=== PATIENT | female | born 1970 | race Caucasian/White ===

== ENCOUNTER 2018-01-01 11:13 | Emergency (ER) | payer MEDICAID ==
[2018-01-01] MEDS: TETRACAINE 0.5% 4 ML OPH LEFT EYE (11:44)
[2018-01-01] MEDS: FLUORESCEIN STRIP LEFT EYE (11:44)
[2018-01-01] MEDS: IBUPROFEN 800 MG TAB PO (11:50)
== END 2018-01-01 14:38 | disposition home or self-care (01) ==
LOC: FTE 11:13
DX: B02.9 Zoster without complications (principal); R59.0 Localized enlarged lymph nodes; I10 Essential (primary) hypertension; E66.9 Obesity, unspecified; Z68.27 Body mass index [BMI] 27.0-27.9, adult
CPT/HCPCS: 76536; 99284-25

== ENCOUNTER 2018-07-02 08:55 | Emergency (ER) | payer MEDICAID ==
[2018-07-02 09:39] LABS: ADD MAN DIFF? NO
[2018-07-02 09:40] LABS: WHITE BLOOD COUNT 4.1 10^3/ul (4.8-10.8)
[2018-07-02 09:40] LABS: BASOPHILS % 0.5 % (0.0-2.0); EOSINOPHILS % 2.7 % (0.0-7.0); HEMATOCRIT 43.2 % (37.0-47.0); HEMOGLOBIN 13.7 g/dl (12.0-16.0); LYMPHOCYTES % 34.3 % (15.0-51.0); MEAN CORPUSCULAR HEMOGLOBIN 29.1 pg (29.0-33.0); MEAN CORPUSCULAR HGB CONC 31.7 g/dl (32.0-37.0); MEAN CORPUSCULAR VOLUME 91.7 fl (82.0-101.0); MEAN PLATELET VOLUME 9.1 fl (7.4-10.4); MONOCYTES % 9.4 % (0.0-11.0); NEUTROPHIL # 2.2 10^3/ul (1.6-7.5); NEUTROPHILS % 52.9 % (39.0-77.0); PLATELET COUNT 175 10^3/UL (140-415); RED BLOOD COUNT 4.71 10^6/ul (4.20-5.40); RED CELL DISTRIBUTION WIDTH 12.7 % (11.5-14.5)
[2018-07-02 09:41] LABS: EOSINOPHILS # 0.1 10^3/ul (0.0-0.5); LYMPHOCYTES # 1.4 10^3/ul (0.8-2.9); MONOCYTE # 0.4 10^3/ul (0.3-0.9)
[2018-07-02] MEDS: ONDANSETRON 4 MG INJ IV ×2 (09:42→11:35)
[2018-07-02] MEDS: morphine 2 MG INJ IV (09:42)
[2018-07-02] MEDS: SOD CHLORIDE 0.9% 1,000 ML IV (09:43)
[2018-07-02 09:57] LABS: PROTIME 12.2 Sec (11.9-14.9)
[2018-07-02 09:58] LABS: PARTIAL THROMBOPLASTIN TIME 29.2 Sec (23.0-35.0)
[2018-07-02 10:00] LABS: ADD UMIC NO; ALANINE AMINOTRANSFERASE 31 IU/L (13-69); ALBUMIN 4.6 g/dl (3.3-4.9); ALKALINE PHOSPHATASE 106 IU/L (42-121); AMYLASE 40 U/L (11-123); ANION GAP 9 (5-13); ASPARTATE AMINO TRANSFERASE 31 IU/L (15-46); BILIRUBIN,INDIRECT 0.6 mg/dl (0-1.1); BILIRUBIN,TOTAL 0.6 mg/dl (0.2-1.3); BLOOD UREA NITROGEN 16 mg/dl (7-20); CALCIUM 9.7 mg/dl (8.4-10.2); CARBON DIOXIDE 26 mmol/L (21-31); CHLORIDE 106 mmol/L (97-110); CREATININE 0.53 mg/dl (0.44-1.00); Estimated GFR > 60 mL/min (>60); GLUCOSE 108 mg/dl (70-220); LIPASE 142 U/L (23-300); POTASSIUM 4.8 mmol/L (3.5-5.1); SODIUM 141 mmol/L (135-144); TOTAL PROTEIN 7.3 g/dl (6.1-8.1); UR ASCORBIC ACID NEGATIVE (NEGATIVE); UR BILIRUBIN (Dip) NEGATIVE (NEGATIVE); UR BLOOD (Dip) NEGATIVE (NEGATIVE); UR CLARITY CLEAR (CLEAR); UR COLOR YELLOW (YELLOW); UR GLUCOSE (Dip) NEGATIVE (NEGATIVE); UR KETONES (Dip) NEGATIVE (NEGATIVE); UR LEUKOCYTE ESTERASE (Dip) NEGATIVE Leu/ul (NEGATIVE); UR NITRITE (Dip) NEGATIVE (NEGATIVE); UR SPECIFIC GRAVITY (Dip) 1.015 (1.003-1.030); UR TOTAL PROTEIN (Dip) NEGATIVE (NEGATIVE); UR UROBILINOGEN (Dip) NEGATIVE (NEGATIVE)
[2018-07-02 10:13] LABS: TROPONIN-I < 0.012 ng/ml (0.000-0.120)
[2018-07-02] MEDS: IOHEXOL 300MG/ML 150 ML BTL (10:48)
[2018-07-02] MEDS: SOD CHLORIDE 0.9% 100 ML (10:48)
[2018-07-02] MEDS: morphine 4 MG/ML VIAL IV (11:35)
== END 2018-07-02 11:55 | disposition home or self-care (01) ==
LOC: E/R 08:55
DX: K57.30 Diverticulosis of large intestine without perforation or abscess without bleeding (principal); E66.9 Obesity, unspecified; I10 Essential (primary) hypertension; Z85.028 Personal history of other malignant neoplasm of stomach
CPT/HCPCS: 74177; 80053; 81003; 81025; 82150; 83690; 84484; 85025; 85610; 85730; 93005; 96374; 96375; 99285-25

== ENCOUNTER 2018-08-20 14:06 | Emergency (ER) | payer MEDICAID ==
[2018-08-20] MEDS: IBUPROFEN 600 MG TAB PO (14:31)
== END 2018-08-20 14:45 | disposition home or self-care (01) ==
LOC: FTE 14:06
DX: J02.9 Acute pharyngitis, unspecified (principal); R09.89 Other specified symptoms and signs involving the circulatory and respiratory systems; H92.01 Otalgia, right ear; I10 Essential (primary) hypertension; E66.9 Obesity, unspecified; R40.2412 Glasgow coma scale score 13-15, at arrival to emergency department; Z68.31 Body mass index [BMI] 31.0-31.9, adult
CPT/HCPCS: 99283; Z7502

== ENCOUNTER 2018-12-04 09:51 | Emergency (ER) | payer MEDICAID ==
[2018-12-04 10:28] LABS: ADD MAN DIFF? NO
[2018-12-04 10:29] LABS: BASOPHILS % 0.7 % (0.0-2.0); EOSINOPHILS # 0.1 10^3/ul (0.0-0.5); EOSINOPHILS % 3.1 % (0.0-7.0); HEMATOCRIT 41.5 % (37.0-47.0); HEMOGLOBIN 13.5 g/dl (12.0-16.0); LYMPHOCYTES # 1.1 10^3/ul (0.8-2.9); LYMPHOCYTES % 26.4 % (15.0-51.0); MEAN CORPUSCULAR HEMOGLOBIN 29.6 pg (29.0-33.0); MEAN CORPUSCULAR HGB CONC 32.5 g/dl (32.0-37.0); MONOCYTE # 0.4 10^3/ul (0.3-0.9); MONOCYTES % 9.4 % (0.0-11.0); NEUTROPHIL # 2.5 10^3/ul (1.6-7.5); NEUTROPHILS % 60.2 % (39.0-77.0); PLATELET COUNT 177 10^3/UL (140-415); RED BLOOD COUNT 4.56 10^6/ul (4.20-5.40); RED CELL DISTRIBUTION WIDTH 12.7 % (11.5-14.5)
[2018-12-04 10:29] LABS: WHITE BLOOD COUNT 4.2 10^3/ul (4.8-10.8)
[2018-12-04] MEDS: HYDROCHLOROTHIAZIDE 25 MG TAB PO (10:30)
[2018-12-04 10:47] LABS: ANION GAP 8 (5-13); BLOOD UREA NITROGEN 14 mg/dl (7-20); CALCIUM 9.4 mg/dl (8.4-10.2); CARBON DIOXIDE 26 mmol/L (21-31); CHLORIDE 106 mmol/L (97-110); CREATININE 0.62 mg/dl (0.44-1.00); Estimated GFR > 60 mL/min (>60); GLUCOSE 110 mg/dl (70-220); POTASSIUM 3.9 mmol/L (3.5-5.1); SODIUM 140 mmol/L (135-144)
[2018-12-04 10:58] LABS: TROPONIN-I < 0.012 ng/ml (0.000-0.120)
[2018-12-04] MEDS: MECLIZINE 12.5 MG TAB PO (10:58)
== END 2018-12-04 12:11 | disposition home or self-care (01) ==
LOC: E/R 09:51
DX: I10 Essential (primary) hypertension (principal); E11.9 Type 2 diabetes mellitus without complications
CPT/HCPCS: 36415; 71045; 80048; 84484; 85025; 93005; 99285-25